=== PATIENT | male | born 1960 | race Caucasian/White ===

== ENCOUNTER 2021-08-20 11:26 | Inpatient (IN) ==
[2021-08-20] MEDS ORDERED: Lactated Ringers 1000 ml BAG 1,000 ML IV ONE (11:35)
[2021-08-20] MEDS ORDERED: Ondansetron 4 mg VIAL 2 MG/ML 2 ml VIAL IV ONE (11:35)
[2021-08-20] MEDS ORDERED: Heparin - STEMI 5,000 UNITS/ML 1 ml VIAL IV ONE ×2 (12:25→12:31)
[2021-08-20 12:39] LABS: ABS Eosinophils 0.2 10^3/ul (0-0.6); ABS Lymphocytes 1.7 10^3/ul (1.0-4.8); ABS Monocytes 0.5 10^3/ul (0-0.8); ABS Neutrophils 9.2 10^3/ul (1.5-7.7); Eosinophil % 1.9 %; Hematocrit 46 % (42-52); Hemoglobin 16.1 g/dL (14.0-18.0); Lymphocyte % 14.9 %; Mean Corpuscular HGB Conc 35 g/dL (31-36); Mean Corpuscular Hemoglobin 34 pg (27-31); Mean Corpuscular Volume 98 fL (80-94); Mean Platelet Volume 7.7 fL (7.4-10.4); Nucleated Red Blood Cells % 0.1; Platelet Count 184 10^3/uL (150-450); Red Blood Count 4.69 10^6 /uL (4.18-5.48); Red Cell Distribution Width 14 % (10-15); White Blood Count 11.6 10^3/uL (3.5-10.8)
[2021-08-20] MEDS ORDERED: fentaNYL 100 mcg/2 ml 50 MCG/ML VIAL ONE ×2 (12:41→14:44)
[2021-08-20] MEDS ORDERED: Heparin 1,000 UNIT/ML 10 ml (10,000 UNITS) CATHLAB/DIALYSIS ONE (12:42)
[2021-08-20] MEDS ORDERED: Heparin 2 UNITS/ML 1000 mls 2,000 ML IV ONE (12:42)
[2021-08-20] MEDS ORDERED: Iohexol 350 (CONTRAST) 200 ML MDV IV ONE ×2 (12:42→12:46)
[2021-08-20] MEDS ORDERED: nitroGLYCERIN DRIP 25,000 MCG/250 ML BTL ONE (12:42)
[2021-08-20] MEDS ORDERED: niCARdipine 0.1MG/ML IVPREMIX 20 MG/200 ML BAG IV ONE (12:43)
[2021-08-20] MEDS ORDERED: Midazolam 5 mg/5 ml VIAL 1 mg/ml 5 ml VIAL (5 mg) ONE ×2 (12:46→12:47)
[2021-08-20] MEDS ORDERED: fentaNYL 250 mcg/5 ml 50 MCG/ML 5 ml VIAL (250 MCG) ONE (12:46)
[2021-08-20] MEDS ORDERED: Lidocaine 2% (CARDIAC or IV) 20 MG/ML 5 ML SYRINGE (100 MG) ONE (12:47)
[2021-08-20] MEDS ORDERED: Lidocaine 1% MPF 5 ML VIAL ONE (12:48)
[2021-08-20 12:49] LABS: INR 1.13 (0.86-1.15)
[2021-08-20] MEDS ORDERED: Norepinephrine 16MCG/ML BAG NS 4,000 MCG/250 ML BAG IV ONE (12:55)
[2021-08-20 13:00] LABS: High Sens Troponin Baseline 667 pg/mL (<20)
[2021-08-20] MEDS ORDERED: Phenylephrine 40 mcg/mL 10mL (400mcg) SYRINGE ONE (13:00)
[2021-08-20] MEDS ORDERED: Heparin 2 UNITS/ML 1000 mls 1,000 ML IV ONE (13:08)
[2021-08-20 13:17] LABS: ALT 22 U/L (7-52); Albumin/Globulin Ratio 1.7 (1-3); Alkaline Phosphatase 60 U/L (35-149); Blood Urea Nitrogen 11 mg/dL (6-24); CO2 Carbon Dioxide 22 mmol/L (22-32); Calcium 8.3 mg/dL (8.6-10.3); Chloride 105 mmol/L (101-111); Globulin 2.3 g/dL (2-4); Glucose 228 mg/dL (70-100); Sodium 138 mmol/L (135-145); Total Protein 6.3 g/dL (6.4-8.9)
[2021-08-20 13:25] LABS: Anion Gap 11 mmol/L (2-11)
[2021-08-20] MEDS ORDERED: EPINEPHrine SYR 0.1MG/ML 10 ml SYRINGE ONE (13:45)
[2021-08-20] MEDS ORDERED: Heparin DRIP 25,000 UNITS BAG 25,000 UNITS/500 ML BAG IV SCH (14:30)
[2021-08-20] MEDS ORDERED: Furosemide 40 mg/4 ml IV VIAL ONE (14:33)
[2021-08-20] MEDS ORDERED: Heparin 5000 UNITS/ML 1 mL VIAL IV SCH (15:00)
[2021-08-20] MEDS ORDERED: Furosemide 40 mg/4 ml IV VIAL IV ONE (15:40)
[2021-08-20 15:57] VITALS: BP 99/68
[2021-08-20] MEDS ORDERED: Perflutren Lipid Microsphere 3 ML VIAL ONE (16:12)
[2021-08-20 16:32] LABS: Urine Appearance Clear; Urine Bilirubin Negative (Negative); Urine Blood Negative (Negative); Urine Color Yellow; Urine Glucose 3+(>=500 mg/dL) (Negative); Urine Ketones 1+ (Negative); Urine Nitrite Negative (Negative); Urine Protein Negative (Negative); Urine Specific Gravity 1.053 (1.002-1.030); Urine Urobilinogen Negative (Negative)
[2021-08-20 16:53] LABS: ABS Lymphocytes 1.1 10^3/ul (1.0-4.8); ABS Monocytes 0.3 10^3/ul (0-0.8); ABS Neutrophils 13.4 10^3/ul (1.5-7.7); Eosinophil % 0.2 %; Hematocrit 52 % (42-52); Hemoglobin 17.7 g/dL (14.0-18.0); Lymphocyte % 7.2 %; Mean Corpuscular HGB Conc 34 g/dL (31-36); Mean Corpuscular Hemoglobin 34 pg (27-31); Mean Corpuscular Volume 100 fL (80-94); Mean Platelet Volume 7.9 fL (7.4-10.4); Nucleated Red Blood Cells % 0.2; Platelet Count 201 10^3/uL (150-450); Red Blood Count 5.23 10^6 /uL (4.18-5.48); Red Cell Distribution Width 14 % (10-15); White Blood Count 14.8 10^3/uL (3.5-10.8)
[2021-08-20] MEDS ORDERED: Norepinephrine 16MCG/ML BAGD5W 4,000 MCG/250 ML BAG IV SCH ×2 (17:00)
[2021-08-20 17:14] LABS: High Sensitivity Troponin 1 Hr 23674 pg/mL (<20)
[2021-08-20 18:04] LABS: Albumin 4.1 g/dL (3.2-5.2)
[2021-08-20 18:10] LABS: Albumin/Globulin Ratio 1.6 (1-3); Cholesterol 341 mg/dL; Globulin 2.6 g/dL (2-4); HDL Cholesterol 60.4 mg/dL; LDL Cholesterol 257 mg/dL; Total Protein 6.7 g/dL (6.4-8.9); Triglycerides 118 mg/dL
[2021-08-20 18:18] LABS: ALT 42 U/L (7-52); Alkaline Phosphatase 74 U/L (35-149); Anion Gap 22 mmol/L (2-11); Blood Urea Nitrogen 13 mg/dL (6-24); CO2 Carbon Dioxide 15 mmol/L (22-32); Calcium 8.5 mg/dL (8.6-10.3); Chloride 101 mmol/L (101-111); Glucose 312 mg/dL (70-100); Sodium 138 mmol/L (135-145); eGFR CKD-EPI 60.6 (>60)
== END 2021-08-20 15:30 | disposition short-term general hospital (02) | DRG 981 ==
LOC: ED 11:26 → CHICATH 12:40 → ICU 15:16
PROVIDERS: ADMIT Internal Medicine; ATTEND Internal Medicine